=== PATIENT | male | born 1995 | race Caucasian/White ===

== ENCOUNTER 2020-08-26 11:04 | Emergency (ER) | payer SELFPAY ==
[2020-08-26 11:53] LABS: GLUCOSE, URINE (UA) NEGATIVE (NEGATIVE); KETONES,URINE (UA) >=80 mg/dL (NEGATIVE); LEUKOCYTE ESTERASE, URINE NEGATIVE (NEGATIVE); NITRITE,URINE NEGATIVE (NEGATIVE); OCCULT BLOOD,URINE MODERATE (NEGATIVE); PROTEIN,URINE 30 mg/dL (NEGATIVE); UROBILINOGEN,URINE 2 E.U./dL (NORMAL)
[2020-08-26 11:59] LABS: CLARITY,URINE CLEAR (CLEAR)
[2020-08-26 12:00] LABS: BILIRUBIN,URINE NEGATIVE (NEGATIVE); ICTOTEST,URINE NEGATIVE
[2020-08-26 12:16] LABS: BACTERIA,URINE Few /HPF (None Seen); MUCUS,URINE Moderate Strands; SQUAMOUS EPITHELIAL CELL,UR RARE Squamous (<= Few)
[2020-08-26 12:49] LABS: BASOPHILS % (AUTO) 0.5 %; EOSINOPHILS % (AUTO) 0.5 %; HGB - HEMOGLOBIN 14.3 g/dL (14.0-18.0); LYMPHOCYTES % (AUTO) 12.4 %; MEAN CORPUSCULAR HEMOGLOBIN 29.3 pg (27.0-31.0); MEAN CORPUSCULAR HGB CONC 35.3 g/dL (32.0-36.0); MEAN PLATELET VOLUME 9.7 fL (7.4-11.4); MONOCYTES % (AUTO) 9.6 %; NEUTROPHILS % (AUTO) 76.1 %; PLT - PLATELET COUNT 351 10^3/uL (130-450); RED BLOOD COUNT 4.88 10^6/uL (4.70-6.10); RED CELL DISTRIBUTION WIDTH 11.8 % (12.0-15.0); WHITE BLOOD COUNT 16.5 x10^3/uL (4.8-10.8)
[2020-08-26 13:03] LABS: BILIRUBIN,TOTAL 0.9 mg/dL (0.2-1.0); CALCIUM 9.5 mg/dL (8.5-10.3); CREATININE 0.9 mg/dL (0.6-1.2); TOTAL PROTEIN 8.2 g/dL (6.7-8.2)
[2020-08-26 13:05] LABS: ABNORMAL LYMPHS % (MANUAL) 0 %
[2020-08-26 13:24] LABS: BAND NEUTROPHILS % (MANUAL) 6 %; DIFFERENTIAL COMMENT MANUAL DIFFERENTIAL; LYMPHOCYTES # (MANUAL) 1.8 10^3/uL (1.5-3.5); LYMPHOCYTES % (MANUAL) 11 %; MONOCYTES # (MANUAL) 1.5 10^3/uL (0.0-1.0); PLATELET ESTIMATE, MANUAL NORMAL (130-450,000) (NORMAL); PLATELET MORPHOLOGY NORMAL APPEARANCE (NORMAL); RBC MORPHOLOGY (MULTIPLE) NORMAL APPEARANCE (NORMAL)
--- NOTE | 2020-08-26 13:29 | ED Physician Documentation ---
PD HPI ABD PAIN - Stated complaint Stated Complaint: ABD PX - Chief complaint Chief Complaint: Abd Pain - History obtained from History obtained from: Patient - Additional information Additional information: 24-year-old gentleman with no history of abdominal surgeries had increasing right lower quadrant pain for a week that has migrated somewhat caudal. Is associated with mildly decreased appetite and decreased stools. No nausea. He was febrile last night. No blood in the stool. Review of Systems Ten Systems: 10 systems reviewed and negative Constitutional: reports: Fever, Chills Cardiac: denies: Chest pain / pressure, Palpitations Respiratory: denies: Dyspnea, Cough PD PAST MEDICAL HISTORY - Past Medical History Past Medical History: No - Allergies Allergies/Adverse Reactions: Allergies Allergy/AdvReac Type Severity Reaction Status Date / Time No Known Drug Allergies Allergy Verified 08/26/20 14:20 - Social History Does the pt smoke?: No Smoking Status: Never smoker Does the pt drink ETOH?: Yes Does the pt have substance abuse?: No Substance Use and Type: Marijuana - Family History Family history: reports: Other (no IBD) - Immunizations Immunizations are current?: Yes PD ED PE NORMAL - Vitals Vital signs reviewed: Yes - General General: Alert and oriented X 3, No acute distress - HEENT HEENT: PERRL, EOMI, Dentition benign - Neck Neck: Supple, no meningeal sign, No bony TTP - Cardiac Cardiac: RRR, No murmur - Respiratory Respiratory: No respiratory distress, Clear bilaterally - Abdomen Abdomen: Normal bowel sounds, Other (Exquisitely tender in the right lower quadrant with negative Rovsing sign but does have some guarding and rebound tenderness.) - Back Back: No CVA TTP, No spinal TTP - Derm Derm: Normal color, Warm and dry - Extremities Extremities: No edema, No calf tenderness / cord - Neuro Neuro: Alert and oriented X 3, Normal speech Results - Vitals Vitals: Vital Signs - 24 hr 08/26/20 08/26/20 08/26/20 11:27 13:44 14:50 Temperature 37.2 C 37.0 C 37.2 C Heart Rate 103 H 93 90 Respiratory 18 18 18 Rate Blood Pressure 113/64 112/56 L 112/57 L O2 Saturation 99 100 100 Oxygen O2 Source Room air - Labs Labs: Laboratory Tests 08/26/20 08/26/20 08/26/20 11:44 12:45 12:45 WBC 16.5 H RBC 4.88 Hgb 14.3 Hct 40.5 L MCV 83.0 MCH 29.3 MCHC 35.3 RDW 11.8 L Plt Count 351 MPV 9.7 Neut # (Auto) Not Reportable Lymph # (Auto) Not Reportable [place] # (Auto) Not Reportable Eos # (Auto) Not Reportable Baso # (Auto) Not Reportable Absolute Nucleated RBC Not Reportable Total Counted 100 Band Neuts % (Manual) 6 Abnorm Lymph % (Manual) 0 Nucleated RBC % Not Reportable Neutrophils # (Manual) 13.2 H Lymphocytes # (Manual) 1.8 Monocytes # (Manual) 1.5 H Eosinophils # (Manual) 0.0 Basophils # (Manual) 0.0 Differential Comment MANUAL DIFFERENTIAL Manual Slide Review Indicated WBC Morphology NORMAL APPEARANCE Platelet Estimate NORMAL (130-450,000) Platelet Morphology NORMAL APPEARANCE RBC Morph Micro Appear NORMAL APPEARANCE Sodium 135 Potassium 4.1 Chloride 95 L Carbon Dioxide 24 Anion Gap 16.0 H BUN 15 Creatinine 0.9 Estimated GFR (MDRD) 105 Glucose 103 H Calcium 9.5 Total Bilirubin 0.9 AST 19 ALT 28 Alkaline Phosphatase 77 Total Protein 8.2 Albumin 4.0 Globulin 4.2 Albumin/Globulin Ratio 1.0 Lipase 23 Urine Color YELLOW Urine Clarity CLEAR Urine pH 6.0 Ur Specific [place] 1.025 Urine Protein 30 H Urine Glucose (UA) NEGATIVE Urine Ketones >=80 H Urine Occult Blood MODERATE H Urine Nitrite NEGATIVE Urine Bilirubin NEGATIVE Urine Urobilinogen 2 H Ur Leukocyte Esterase NEGATIVE Urine RBC 11-25 H Urine WBC 0-3 Ur Squamous Epith Cells RARE Squamous Urine Bacteria Few Urine Mucus Moderate Strands Ur Microscopic Review INDICATED Urine Culture Comments NOT INDICATED - Rads (name of study) CT A/P Radiology: EMP read contemporaneously (Inflammatory changes of the ascending colon and cecum; favored to represent ischemic colitis) PD MEDICAL DECISION MAKING - ED course ED course: 24-year-old otherwise healthy gentleman presents with right lower quadrant pain that seems like an extended appendicitis and he was sent for CT with concern for rupture given the time course. CT showed an inflammatory colitis with concern for vascular etiology, although this would be fairly odd at his young age. Inflammatory bowel disease is also on the differential. I discussed the case with our surgeon who recommends sending him to a tertiary center that has GI and vascular coverage in [place] was called at 2:45 PM. Was accepted by Dr. Polanco, hospitalist in [place] at 1530. [place] were completed. He is stable for transport. Departure - Departure Disposition: 02 Transfer Acute Care Hosp Clinical Impression: Colitis Condition: Stable
[2020-08-26] MEDS ORDERED: IOVERSOL 320 100 ML VIAL IVP ONE (13:52)
[2020-08-26] MEDS ORDERED: CEFOTETAN DISODIUM 2 GM in SODIUM CHLORIDE 0.9% MINIBAG 100 ML IV STA (14:05)
--- NOTE | 2020-08-26 14:29 | CT Report ---
PROCEDURE: Abdomen/Pelvis W INDICATIONS: Right lower quadrant pain CONTRAST: IV CONTRAST: Optiray 320 ml: 100 PO CONTRAST: *NO PO CONTRAST TECHNIQUE: After the administration of intravenous contrast, 5 mm thick sections acquired from the diaphragms to the symphysis. 5 mm thick coronal and sagittal reformats were acquired. For radiation dose reducti on, the following was used: automated exposure control, adjustment of mA and/or kV according to lucía ent size. COMPARISON: None. FINDINGS: Image quality: Excellent. ABDOMEN: Lung bases: Lung bases are clear. Heart size is normal. Solid organs: Liver and spleen are normal in size and enhancement. Gallbladder is normal Biliary s ystem is non dilated. Pancreas enhances normally. No adrenal nodules. Kidneys demonstrate normal s ize and enhancement, without hydronephrosis. Peritoneum and bowel: There is moderate to severe inflammatory change involving the cecum and ascendi ng colon to the level of the hepatic flexure. There is wall thickening with submucosal edema and pron ounced pericolonic fat stranding. The regional mesenteric lymph nodes are markedly enlarged. There is questionable mucosal hyperenhancement with decreased attenuation of the regional mesenteric arteries and veins, suspicious for potential ischemic process. The appendix is nondilated but is fluid-filled with some adjacent inflammatory change at the base of the cecum, however appendicitis is not favored to represent a primary process given the lack of appendiceal dilatation. There is right lower quadra nt free fluid as well as free fluid in the right paracolic gutter and right hemipelvis. Nodes and vessels: No retroperitoneal or mesenteric adenopathy by size criteria. Aorta and inferior vena cava are normal in size. Miscellaneous: No ventral hernias. PELVIS: Genitourinary: Bladder wall thickness is normal. Miscellaneous: No inguinal hernias or adenopathy. Bones: No suspicious bony lesions. No vertebral body compression fractures. IMPRESSION: Pronounced inflammatory changes involving the before meals ascending colon and cecum which are favore d to represent either ischemic or inflammatory colitis. Hypoenhancement of the regional SMA and SMV b ranches increase the suspicion for a primary ischemic process. Reviewed by: Nikos Casanova MD on 08/26/2020 2:28 PM PST Approved by: Nikos Casanova MD on 08/26/2020 2:28 PM PST Station ID: [id number]
--- NOTE | 2020-08-26 15:03 | HISTORY & PHYSICAL EXAMINATION ---
Chief Complaint - Chief Complaint Chief Complaint: abdominal pain for 1 week Abdominal Pain HPI - History Obtained From History obtained from: Patient Exam limitations: No limitations - History of Present Illness Severity at the worst: Moderate Pain Quality: Dull Timing: Gradual onset Duration: Days: (6) HPI Comment/Other: 24 year old with 1 week of right lower quadrant abdominal pain. He has had low grade fevers last couple days. He typically has a bm daily. He has not had a bm for a week however has been passing gas. He has been able to take liquids well. He has noticed mucous BMs for quite a while, many weeks if not months. No bloody bms. No prior abdominal pain or change in bowel habits. He denies other symptoms He denies family history of intestinal disease. Family history remarkable for only heart disease Social & Family Hx - Social History Does the pt smoke?: No Smoking Status: Never smoker Does the pt drink ETOH?: Yes Does the pt have substance abuse?: No Substance Use and Type: Marijuana Meds/Allgy - Allergies Allergies/Adverse Reactions: Allergies Allergy/AdvReac Type Severity Reaction Status Date / Time No Known Drug Allergies Allergy Verified 08/26/20 14:20 Review of Systems - Constitutional Constitutional: reports: Fatigue (10 pt ros as above otherwise unremarkable. He had been in good health until recently) Exam - Vital Signs Reviewed Vital Signs: Yes Vital Signs: Vital Signs x48h Temp Pulse Resp BP Pulse Ox 08/26/20 14:50 37.2 C 90 18 112/57 L 100 08/26/20 13:44 37.0 C 93 18 112/56 L 100 08/26/20 11:27 37.2 C 103 H 18 113/64 99 - Physical Exam General Appearance: positive: No acute distress, Alert Eyes Bilateral: positive: Normal inspection, PERRL, EOMI ENT: positive: No signs of dehydration Neck: positive: No JVD Respiratory: positive: No respiratory distress Abdomen: positive: No distention, Other (minimal right lower quadrant discomfort . no peritonitis) Results - Lab Results Fish Bones: 08/26/20 12:45 08/26/20 12:45 Other Lab Results: Lab Results x24hrs 08/26/20 08/26/20 08/26/20 Range/Units 12:45 12:45 11:44 WBC 16.5 H (4.8-10.8) x10^3/uL RBC 4.88 (4.70-6.10) 10^6/uL Hgb 14.3 (14.0-18.0) g/dL Hct 40.5 L (42.0-52.0) % MCV 83.0 (80.0-94.0) fL MCH 29.3 (27.0-31.0) pg MCHC 35.3 (32.0-36.0) g/dL RDW 11.8 L (12.0-15.0) % Plt Count 351 (130-450) 10^3/uL MPV 9.7 (7.4-11.4) fL Neut # (Auto) Not Reportable Lymph # (Auto) Not Reportable [place] # (Auto) Not Reportable Eos # (Auto) Not Reportable Baso # (Auto) Not Reportable Absolute Nucleated RBC Not Reportable Total Counted 100 Band Neuts % (Manual) 6 (0 - 10) % Abnorm Lymph % (Manual) 0 % Nucleated RBC % Not Reportable Neutrophils # (Manual) 13.2 H (1.5-6.6) 10^3/uL Lymphocytes # (Manual) 1.8 (1.5-3.5) 10^3/uL Monocytes # (Manual) 1.5 H (0.0-1.0) 10^3/uL Eosinophils # (Manual) 0.0 (0-0.7) 10^3/uL Basophils # (Manual) 0.0 (0-0.1) 10^3/uL Differential Comment MANUAL DIFFERENTIAL Manual Slide Review Indicated WBC Morphology NORMAL APPEARANCE (NORMAL) Platelet Estimate NORMAL (130-450,000) (NORMAL) Platelet Morphology NORMAL APPEARANCE (NORMAL) RBC Morph Micro Appear NORMAL APPEARANCE (NORMAL) Sodium 135 (135-145) mmol/L Potassium 4.1 (3.5-5.0) mmol/L Chloride 95 L (101-111) mmol/L Carbon Dioxide 24 (21-32) mmol/L Anion Gap 16.0 H (6-13) BUN 15 (6-20) mg/dL Creatinine 0.9 (0.6-1.2) mg/dL Estimated GFR (MDRD) 105 (>89) Glucose 103 H (70-100) mg/dL Calcium 9.5 (8.5-10.3) mg/dL Total Bilirubin 0.9 (0.2-1.0) mg/dL AST 19 (10-42) IU/L ALT 28 (10-60) IU/L Alkaline Phosphatase 77 (42-121) IU/L Total Protein 8.2 (6.7-8.2) g/dL Albumin 4.0 (3.2-5.5) g/dL Globulin 4.2 (2.1-4.2) g/dL Albumin/Globulin Ratio 1.0 (1.0-2.2) Lipase 23 (22-51) U/L Urine Color YELLOW Urine Clarity CLEAR (CLEAR) Urine pH 6.0 (5.0-7.5) PH Ur Specific [place] 1.025 (1.002-1.030) Urine Protein 30 H (NEGATIVE) mg/dL Urine Glucose (UA) NEGATIVE (NEGATIVE) mg/dL Urine Ketones >=80 H (NEGATIVE) mg/dL Urine Occult Blood MODERATE H (NEGATIVE) Urine Nitrite NEGATIVE (NEGATIVE) Urine Bilirubin NEGATIVE (NEGATIVE) Urine Urobilinogen 2 H (NORMAL) E.U./dL Ur Leukocyte Esterase NEGATIVE (NEGATIVE) Urine RBC 11-25 H (0-5) /HPF Urine WBC 0-3 (0-3) /HPF Ur Squamous Epith Cells RARE Squamous (<= Few) Urine Bacteria Few (None Seen) /HPF Urine Mucus Moderate Strands Ur Microscopic Review INDICATED Urine Culture Comments NOT INDICATED - Diagnostic Imaging Results Diagnostic Imaging Results: positive: Final report reviewed, Read independently (concerning for crohns or ascending colon inflammatory process/ colitis normal appendix), Other (IMPRESSION: Pronounced inflammatory changes involving the be fore meals ascending colon and cecum which are favored to represent either ischemic or inflammatory colitis. Hypoenhancement of the regional SMA a nd SMV branches increase the suspicion for a primary ischemic process. Reviewed by) Impression/Plan - Problem List Problem List: He has significant inflammation of the proximal ascending colon with a normal appendix. He currently is not sick. No peritonitis. He does not have an acute abdomen Findings concerning for crohns or other process causing colitis. I recommend he be transferred to a hospital that can offer a higher level of care ie gastroenterology available, colorectal surgery available. CT read potentially ischemic colitis. Vascular surgery should be available
[2020-08-26] MEDS ORDERED: DEXTROSE 5%-0.45% NACL 1,000 ML IV STA (15:40)
[2020-08-26] MEDS ORDERED: DEXTROSE 5%-0.45% NACL 1,000 ML IV SCH (16:00)
[2020-08-26] MEDS ORDERED: ACETAMINOPHEN 325 MG TABLET PO STA (16:10)
[2020-08-26 16:53] VITALS: BP 107/72
== END 2020-08-26 17:06 | disposition short-term general hospital (02) ==
LOC: ED 11:04
DX: K52.89 Other specified noninfective gastroenteritis and colitis (principal)
CPT/HCPCS: 36415; 74177; 80053; 81001; 83690; 85025; 96365; 99284; 99285; A9270; Q9967; 81003; 87086

== ENCOUNTER 2020-08-26 16:48 | Outpatient (CLI) | payer SELFPAY | END 2020-08-26 16:49 | disposition short-term general hospital (02) | LOC: EMS 16:48 | PROVIDERS: ATTEND Surgery | DX: K52.9 Noninfective gastroenteritis and colitis, unspecified (principal) | CPT/HCPCS: A0425; A0426 ==

== ENCOUNTER 2021-08-07 15:24 | Outpatient (CLI) | payer BC ==
[2021-08-07 17:56] LABS: BASOPHILS # (AUTO) 0.1 10^3/uL (0.0-0.1); EOSINOPHILS # (AUTO) 0.5 10^3/uL (0.0-0.7); HCT - HEMATOCRIT 41.3 % (42.0-52.0); HGB - HEMOGLOBIN 14.1 g/dL (14.0-18.0); LYMPHOCYTES # (AUTO) 3.7 10^3/uL (1.5-3.5); LYMPHOCYTES % (AUTO) 41.7 %; MEAN CORPUSCULAR HEMOGLOBIN 29.1 pg (27.0-31.0); MEAN CORPUSCULAR HGB CONC 34.1 g/dL (32.0-36.0); MEAN CORPUSCULAR VOLUME 85.2 fL (80.0-94.0); MEAN PLATELET VOLUME 10.5 fL (7.4-11.4); MONOCYTES # (AUTO) 0.6 10^3/uL (0.0-1.0); MONOCYTES % (AUTO) 6.9 %; NEUTROPHILS # (AUTO) 3.9 10^3/uL (1.5-6.6); NEUTROPHILS % (AUTO) 44.2 %; PLT - PLATELET COUNT 324 10^3/uL (130-450); RED BLOOD COUNT 4.85 10^6/uL (4.70-6.10); RED CELL DISTRIBUTION WIDTH 12.1 % (12.0-15.0); WHITE BLOOD COUNT 8.8 x10^3/uL (4.8-10.8)
[2021-08-07 18:07] LABS: ALBUMIN/GLOBULIN RATIO 1.9 (1.0-2.2); BILIRUBIN,TOTAL 0.4 mg/dL (0.2-1.0); CALCIUM 9.7 mg/dL (8.5-10.3); CREATININE 0.9 mg/dL (0.6-1.2); POTASSIUM 4.2 mmol/L (3.5-5.0); TOTAL PROTEIN 7.6 g/dL (6.7-8.2)
[2021-08-07 18:22] LABS: THYROID STIMULATING HORMONE 2.13 uIU/mL (0.34-5.60)
== END 2021-08-07 15:25 | disposition home or self-care (01) ==
LOC: LAB.N 15:24
PROVIDERS: ATTEND Registered Nurse
DX: Z79.899 Other long term (current) drug therapy (principal)
CPT/HCPCS: 36415; 80053; 84443; 85025